=== PATIENT | male | born 1965 | race Caucasian/White ===

== ENCOUNTER 2017-09-13 04:05 | Emergency (ER) | payer OTHER, MEDICAID ==
[~2017-09-13] VITALS: Ht 185.4 cm; Wt 113.4 kg
[~2017-09-13 04:05] MED LIST: AMBIEN CR12.5 MG PO; AMBIEN10 MG PO; ASPIR LOW81 MG PO; CLARITIN10 MG PO; COLCRYS0.6 M1 PO; CORE25 PO; ESIDRIX PO; GLIPIZIDE10 MG PO; GOOD SENSE ASPI81 M3 PO; HYDROCHLOROTHIA25 MG PO; JANUMET1 TAB PO; LANTUS SOLOS100 U/M1 SQ; NOR10T PO; SIMVASTATIN10 M1 PO; ZESTRIL20 MG PO; ZYRTEC10 MG PO
[2017-09-13 04:10] VITALS: Ht 185.4 cm; Wt 113.4 kg
[2017-09-13 05:05] VITALS: BP 114/77
== END 2017-09-13 05:10 | disposition home or self-care (01) ==
LOC: ED 04:05
DX: J06.9 Acute upper respiratory infection, unspecified (principal); I10 Essential (primary) hypertension; E11.9 Type 2 diabetes mellitus without complications; E78.00 Pure hypercholesterolemia, unspecified; Z91.018 Allergy to other foods

== ENCOUNTER 2019-05-27 13:16 | Emergency (ER) | payer OTHER, MEDICAID ==
[~2019-05-27] VITALS: Ht 182.9 cm; Wt 112.9 kg
[2019-05-27 13:32] VITALS: Ht 182.9 cm; Wt 112.9 kg
[2019-05-27 17:48] VITALS: BP 141/67
== END 2019-05-27 17:48 | disposition home or self-care (01) ==
LOC: ED 13:16
DX: H43.11 Vitreous hemorrhage, right eye (principal); I10 Essential (primary) hypertension; E11.9 Type 2 diabetes mellitus without complications; M10.9 Gout, unspecified; E78.00 Pure hypercholesterolemia, unspecified; Z90.49 Acquired absence of other specified parts of digestive tract; Z91.018 Allergy to other foods
CPT/HCPCS: 76512; Q0092